=== PATIENT | male | born 1965 | race Two or more races ===

== ENCOUNTER 2025-02-05 13:16 | Emergency (ER) | payer BC ==
[~2025-02-05] VITALS: Ht 185.4 cm; Wt 71.7 kg
[2025-02-05] MEDS ORDERED: 0.9 % SODIUM CHLORIDE 1,000 ML IV ONE (13:45)
[2025-02-05] MEDS ORDERED: METOPROLOL TARTRATE 5MG/5ML AMPUL IV ONE ×2 (13:45→13:54)
[2025-02-05] MEDS ORDERED: ALDACTONE25 MG (13:50)
[2025-02-05] MEDS ORDERED: BRILINTA60 MG (13:51)
[2025-02-05] MEDS ORDERED: LIPITOR20 MG (13:51)
[2025-02-05] MEDS ORDERED: JARDIANCE10 MG (13:51)
[2025-02-05] MEDS ORDERED: COZAAR25 MG (13:51)
[2025-02-05] MEDS ORDERED: VAZALORE81 MG (13:51)
[2025-02-05 14:04] LABS: BASO % 0.4 % (0.1-1.2); EOS # 0.16 (0.04-0.54); HEMATOCRIT 42.1 % (40.1-51.0); HEMOGLOBIN 13.6 g/dL (13.7-17.5); LYMPH # 1.08 (1.18-3.74); LYMPH % 20.1 % (19.3-53.1); MEAN CORPUSCULAR HEMOGLOBIN 27.9 pg (25.6-32.2); MONO # 0.72 (0.24-0.82); NEUT # 3.36 (1.56-6.13); NEUT % 62.4 % (34.0-71.1); PLATELET COUNT 225 K/uL (163-369); RED BLOOD COUNT 4.88 M/uL (4.63-6.08); RED CELL DISTRIBUTION WIDTH 13.3 % (11.6-14.4)
[2025-02-05] MEDS ORDERED: ADULT LOW DOSE81 M1 PO (14:05)
[2025-02-05] MEDS ORDERED: ALDACTONE25 MG PO (14:05)
[2025-02-05] MEDS ORDERED: JARDIANCE10 MG PO (14:05)
[2025-02-05] MEDS ORDERED: COZAAR25 MG PO (14:06)
[2025-02-05] MEDS ORDERED: LIPITOR40 M1 PO (14:06)
[2025-02-05] MEDS ORDERED: BRILINTA90 MG PO (14:06)
[2025-02-05] MEDS ORDERED: DILTIAZEM HCL 25 MG/5 ML VIAL IV ONE (14:06)
[2025-02-05 14:07] LABS: MONO % 13.4 % (4.7-12.5)
[2025-02-05 14:33] LABS: ALBUMIN 3.5 gm/dL (3.4-5.0); BILIRUBIN TOTAL 0.69 mg/dL (0.3-1.2); CALCIUM 9.6 mg/dL (8.5-10.1); CREATININE SERUM 0.97 mg/dL (0.70-1.30); GFR 79.22; GLOBULINA 4.7 G/DL (2.4-3.5); POTASSIUM 3.69 mEq/L (3.5-5.1); TOTAL PROTEIN 8.2 gm/dL (6.4-8.2)
[2025-02-05 16:13] LABS: URINE APPEARANCE Clear; URINE BILIRRUBIN Negative (NEGATIVE); URINE BLOOD Negative; URINE COLOR Yellow; URINE KETONE 15 (NEGATIVE); URINE LEUKOCYTE Negative; URINE NITRATE Negative; URINE PROTEIN Negative (NEGATIVE); URINE UROBILINOGEN 0.2 E.U./dl
[2025-02-05 16:16] LABS: URINE BACTERIA 7.3 uL (0.0-1933); URINE EPITHELIAL CELLS 2.2 uL (0.0-38.8)
[2025-02-05 16:18] LABS: URINE CAST 0.44 uL (0.0-1.40); URINE GLUCOSE >=1000 MG/DL (NEGATIVE); URINE RBC 0.7 uL (0.0-20.8)
[2025-02-05 17:13] LABS: INR 1.05; PARTIAL THROMBOPLASTIN TIME 25.7 SECONDS (22.0-34.0); PROTHROMBIN TIME 11.4 SECONDS (9.0-11.5)
== END 2025-02-05 18:21 | disposition home or self-care (01) ==
LOC: ER 13:26
PROVIDERS: General Practice
DX: I48.91 Unspecified atrial fibrillation (principal); R00.2 Palpitations; I10 Essential (primary) hypertension; E11.9 Type 2 diabetes mellitus without complications